=== PATIENT | female | born 1955 | race Two or more races ===

== ENCOUNTER 2017-05-12 19:06 | Emergency (ER) | payer OTHER ==
[~2017-05-12] VITALS: Ht 162.6 cm; Wt 72.6 kg
[2017-05-12 19:20] VITALS: BP 182/86
[2017-05-12] MEDS ORDERED: KETOROLAC TROMETH 60MG/2ML VIAL IM ONE (22:45)
== END 2017-05-12 23:18 | disposition home or self-care (01) ==
LOC: ER 19:08
DX: S40.011A Contusion of right shoulder, initial encounter (principal); I10 Essential (primary) hypertension; M19.90 Unspecified osteoarthritis, unspecified site; W19.XXXA Unspecified fall, initial encounter; Y93.89 Activity, other specified; Y92.89 Other specified places as the place of occurrence of the external cause; Y99.8 Other external cause status
CPT/HCPCS: 73030; 96372; 99284; J1885; 29105

== ENCOUNTER 2024-04-14 08:57 | Day surgery (SDC) | payer OTHER ==
[~2024-04-14] VITALS: Ht 165.1 cm; Wt 64.4 kg
[~2024-04-14 08:57] MED LIST: ALBU108A5 IN; BACL10TA PO; BUDE0.5S IN; FLUT1AER17 IN; GABA-1250 PO; HYDR-4072 PO; LISI40TA16 PO; METO-159 PO; UPAD15TA PO
[2024-04-14] MEDS: HYDROcodone-ACET 5/325MG TAB ONE (11:19)
[2024-04-14 11:24] VITALS: BP 106/65; PULSE 61; RESP 14
[2024-04-14] MEDS: HYDROcodone-ACET 5/325MG TAB PO ONE (11:24)
[2024-04-14] MEDS ORDERED: HEPARIN SODIUM (PORCINE) 5000 UNITS/ML 1ML VIAL ONE (11:39)
[2024-04-14] MEDS ORDERED: VERAPAMIL 2.5MG/ML INJ 2ML VIAL IV ONE (11:39)
[2024-04-14] MEDS ORDERED: MIDAZOLAM HCL 2MG/2ML 2ml VIAL (1mg/ml) ONE (11:40)
[2024-04-14] MEDS ORDERED: LIDOCAINE 2%HCL (LOCAL ANESTH.) INJ 20ML MDV ONE (11:40)
[2024-04-14] MEDS ORDERED: IODIXANOL 320MG/ML 100ML BTL IV ONE ×2 (11:40→12:04)
[2024-04-14] MEDS ORDERED: fentaNYL CITRATE 100 MCG/2 ML VL ONE (11:40)
== END 2024-04-14 14:50 | disposition home or self-care (01) ==
LOC: CATH 08:57
PROVIDERS: ATTEND Internal Medicine
DX: R07.89 Other chest pain (principal); Z79.899 Other long term (current) drug therapy
CPT/HCPCS: 93458; C1887; C1894; J1644; J2250; J3010; J7030; Q9967; 99152